=== PATIENT | female | born 1955 | race Caucasian/White ===

== ENCOUNTER 2017-03-19 15:33 | Inpatient (IN) | payer MEDICAID, OTHER ==
--- NOTE | 2017-03-19 16:29 | C.PDOC ---
History Of Present Illness 61 y/o female presents to ED sent by clinic for evaluation on abnormal labs. Patient was called to come in to ED for low hemoglobin of 6. Patient reports fatigue, sob with exertion, palpitations with exertion and lightheadedness but thought symptoms were related to leg ulcers. Patient was seen yesterday for chronic leg ulcers at [facility]. She had been follow by the wound care center in [place] in the past. She denies rectal bleeding, fever, chills but reports night time urinary incontinence. No other complaints at this time. Time Seen by Provider: 03/19/17 16:03 Chief Complaint (Nursing): Abnormal Labs History Per: Patient History/Exam Limitations: no limitations Onset/Duration Of Symptoms: Days Current Symptoms Are (Timing): Still Present Past Medical History Reviewed: Historical Data, Nursing Documentation, Vital Signs Vital Signs: Last Vital Signs Temp 98.5 F 03/19/17 15:44 Pulse 116 H 03/19/17 15:44 Resp 18 03/19/17 15:44 BP 134/77 03/19/17 15:44 Pulse Ox 99 03/19/17 16:34 - Medical History PMH: Peripheral Edema Family History: States: Unknown Family Hx - Social History Hx Alcohol Use: No Hx Substance Use: No - Immunization History Hx Tetanus Toxoid Vaccination: No Hx Influenza Vaccination: No Hx Pneumococcal Vaccination: No Review Of Systems Except As Marked, All Systems Reviewed And Found Negative. Constitutional: Negative for: Fever, Chills Respiratory: Positive for: SOB with Excertion Gastrointestinal: Negative for: Nausea, Vomiting, Diarrhea Genitourinary: Positive for: Incontinence. Negative for: Dysuria Neurological: Positive for: Dizziness. Negative for: Headache Physical Exam - Physical Exam Appears: No Acute Distress Skin: Pale Head: Atraumatic, Normacephalic Eye(s): bilateral: Normal Inspection Oral Mucosa: Moist Cardiovascular: Rhythm Irregular (Tachycardic), No Murmur Respiratory: Normal Breath Sounds, No Rales, No Rhonchi, No Wheezing Gastrointestinal/Abdominal: Soft, No Tenderness, No Guarding, No Rebound, Other (Soft tissues on RLQ) Extremity: No Tenderness, Capillary Refill (<2 seconds), No Deformity, Other ( Soft tissue mass on left proximal anterior thigh, noted for 2 months, ) Neurological/Psych: Oriented x3, Normal Motor, Normal Sensation, Normal Reflexes ED Course And Treatment - Laboratory Results Result Diagrams: 03/19/17 17:09 03/19/17 17:09 Lab Interpretation: Abnormal (HGB 5.9 with low indices.) O2 Sat by Pulse Oximetry: 99 (RA) Pulse Ox Interpretation: Normal - Physician Consult Information Time Consulting Physician Contacted: 18:34 Physician Contacted: Ameena Jefferson Outcome Of Conversation: Patient to be admitted for severe anemia and treatment of chronic leg ulcers. Disposition - Disposition Disposition: HOSPITALIZED Disposition Time: 18:35 Condition: FAIR - POA Present On Arrival: None - Clinical Impression Clinical Impression: Severe anemia, Chronic ulcer of leg - Scribe Statement The provider has reviewed the documentation as recorded by the Rosanne Myers All medical record entries made by the Rosanne were at my direction and personally dictated by me. I have reviewed the chart and agree that the record accurately reflects my personal performance of the history, physical exam, medical decision making, and the department course for this patient. I have also personally directed, reviewed, and agree with the discharge instructions and disposition.
[2017-03-19 17:14] LABS: BASO # 0.1 K/uL (0.0-0.2); BASO % 1.3 % (0.0-2.0); EOS # 0.1 K/uL (0.0-0.7); HEMATOCRIT 20.2 % (34.0-47.0); LYMPH # 0.9 K/uL (1.0-4.3); MEAN CELL VOLUME 60.9 fL (81.0-99.0); MEAN CORPUSCULAR HEMOGLOBIN 17.8 pg (27.0-31.0); MEAN CORPUSCULAR HGB CONC 29.2 g/dL (33.0-37.0); MEAN PLATELET VOLUME 6.4 fL (7.2-11.7); MONO # 0.6 K/uL (0.0-0.8); MONO % 7.3 % (0.0-10.0); RED CELL DISTRIBUTION WIDTH 17.4 % (11.5-14.5); WHITE BLOOD COUNT 8.9 K/uL (4.8-10.8)
[2017-03-19 17:22] LABS: CHLORIDE 97 mmol/L (98-107); POTASSIUM 3.8 mmol/L (3.6-5.2); SODIUM 133 mmol/L (132-148)
[2017-03-19 17:23] LABS: INR 1.2
[2017-03-19 17:24] LABS: BILIRUBIN,TOTAL 0.3 mg/dL (0.2-1.3); GFR AFRICAN-AMERICAN > 60
[2017-03-19 17:25] LABS: ALB/GLOB RATIO 0.6 (1.0-2.1); ALKALINE PHOSPHATASE 88 U/L (38-126); ALT/SGPT 20 U/L (9-52); AST/SGOT 16 U/L (14-36); BLOOD UREA NITROGEN 8 mg/dL (7-17); CARBON DIOXIDE 26 mmol/L (22-30); GLUCOSE,RANDOM 94 mg/dL (65-105); TOTAL PROTEIN 8.2 g/dL (6.3-8.3)
[2017-03-19 17:26] LABS: CALCIUM 8.1 mg/dl (8.6-10.4)
[2017-03-19 18:36] LABS: RBC URINE 2 /hpf (0-3); TRANSITIONAL EPITHIAL < 1 /hpf (0-3); URINE BACTERIA RARE (<OCC); URINE BILIRUBIN NEGATIVE (NEGATIVE); URINE BLOOD NEGATIVE (NEGATIVE); URINE COLOR Yellow (YELLOW); URINE GLUCOSE (UA) NORMAL (Normal); URINE KETONE NEGATIVE (NEGATIVE); URINE LEUKOCYTE ESTERASE 1+ Leu/uL (Negative); URINE PROTEIN NEGATIVE (NEGATIVE); URINE UROBILINOGEN NORMAL mg/dL (0.2-1.0); WBC URINE 9 /hpf (0-5)
[2017-03-19] MEDS ORDERED: Piperacillin/Tazobact 3.375 gm 100 ML IVPB SCH (22:00)
[2017-03-20] MEDS ORDERED: Piperacillin/Tazobact 3.375 gm 100 ML IVPB ONE (00:08)
[2017-03-20] MEDS: Piperacillin/Tazobact 3.375 GM in Sodium Chloride 0.9% 100 ML IVPB SCH ×3 (06:29→22:08)
[2017-03-20 12:07] LABS: BASO # 0.1 K/uL (0.0-0.2); EOS # 0.1 K/uL (0.0-0.7); LYMPH # 0.9 K/uL (1.0-4.3); RED CELL DISTRIBUTION WIDTH 17.6 % (11.5-14.5)
[2017-03-20 12:16] LABS: BASO % 0.6 % (0.0-2.0); EOS % 0.6 % (0.0-4.0); HEMATOCRIT 19.7 % (34.0-47.0); LYMPH % 9.9 % (20.0-40.0); MEAN CELL VOLUME 60.9 fL (81.0-99.0); MEAN CORPUSCULAR HEMOGLOBIN 18.2 pg (27.0-31.0); MEAN CORPUSCULAR HGB CONC 29.8 g/dL (33.0-37.0); MEAN PLATELET VOLUME 6.8 fL (7.2-11.7); MONO # 0.7 K/uL (0.0-0.8); MONO % 7.7 % (0.0-10.0); PLATELET COUNT 461 K/uL (130-400); WHITE BLOOD COUNT 8.8 K/uL (4.8-10.8)
[2017-03-20 12:41] LABS: BASOPHIL 1 % (0-2); NEUTROPHIL 85 % (50-75); TOTAL CELLS COUNTED 100
[2017-03-20] MEDS ORDERED: Ciprofloxacin 400mg/200ml D5W 400 MG/200 ML BAG IVPB SCH (19:00)
--- NOTE | 2017-03-20 19:09 | CP.PCM.HP ---
History of Present Illness - History of Present Illness History of Present Illness: fatige weeke sever aneamia infected ulcer ankle Present on Admission - Present on Admission Any Indicators Present on Admission: No Review of Systems - Review of Systems Systems not reviewed;Unavailable: Acuity of Condition - Constitutional Constitutional: Anorexia, Weight Loss, Weakness - EENT Eyes: As Per HPI Ears: As Per HPI Nose/Mouth/Throat: As Per HPI - Breasts Breasts: As Per HPI - Cardiovascular Cardiovascular: As Per HPI - Respiratory Respiratory: As Per HPI - Gastrointestinal Gastrointestinal: As Per HPI - Genitourinary Genitourinary: As Per HPI - Reproductive: Female Reproductive:Female: As Per HPI - Menstruation Menstruation: As Per HPI - Musculoskeletal Musculoskeletal: As Per HPI - Integumentary Integumentary: As Per HPI - Neurological Neurological: As Per HPI - Psychiatric Psychiatric: As Per HPI - Endocrine Endocrine: As Per HPI - Hematologic/Lymphatic Hematologic: As Per HPI Past Patient History - Past Medical History & Family History Past Medical History?: Yes - Past Social History Smoking Status: Never Smoked - CARDIAC Hx Cardiac Disorders: Yes Hx Peripheral Edema: Yes - PULMONARY Hx Respiratory Disorders: No - NEUROLOGICAL Hx Neurological Disorder: No - HEENT Hx HEENT Problems: No - RENAL Hx Chronic Kidney Disease: No - HEMATOLOGICAL/ONCOLOGICAL Hx AIDS: No - INTEGUMENTARY Hx Dermatological Problems: No - MUSCULOSKELETAL/RHEUMATOLOGICAL Hx Musculoskeletal Disorders: No Hx Falls: No Other/Comment: urinary frequency - GASTROINTESTINAL Hx Gastrointestinal Disorders: No - GENITOURINARY/GYNECOLOGICAL Hx Genitourinary Disorders: No - PSYCHIATRIC Hx Psychophysiologic Disorder: No Hx Substance Use: No - SURGICAL HISTORY Hx Surgeries: No - ANESTHESIA Hx Anesthesia: No Meds Allergies/Adverse Reactions: Allergies Allergy/AdvReac Type Severity Reaction Status Date / Time clarithromycin [From Biaxin] Allergy ITCHING Verified 03/19/17 15:47 Physical Exam - Constitutional Appears: Non-toxic, Older Than Stated Age - Head Exam Head Exam: NORMAL INSPECTION - Eye Exam Eye Exam: Normal appearance Additional comments: pale conjunctiva - ENT Exam ENT Exam: Mucous Membranes Moist - Neck Exam Neck exam: Positive for: Full Rom - Respiratory Exam Respiratory Exam: Clear to Auscultation Bilateral - Cardiovascular Exam Cardiovascular Exam: REGULAR RHYTHM - GI/Abdominal Exam GI & Abdominal Exam: Normal Bowel Sounds - Rectal Exam Rectal Exam: NORMAL INSPECTION - Extremities Exam Additional comments: ulcer infected ankle - Back Exam Back exam: NORMAL INSPECTION - Neurological Exam Neurological exam: Normal Gait - Psychiatric Exam Psychiatric exam: Normal Affect - Skin Skin Exam: Pallor Results - Vital Signs Recent Vital Signs: Last Vital Signs Temp 99 F 03/20/17 17:33 Pulse 92 H 03/20/17 17:33 Resp 20 03/20/17 17:33 BP 146/77 03/20/17 17:33 Pulse Ox 96 03/20/17 16:00 - Labs Result Diagrams: 03/20/17 11:55 03/19/17 17:09 Labs: Laboratory Results - last 24 hr 03/20/17 11:55 WBC 8.8 RBC 3.24 L Hgb 5.9 L* Hct 19.7 L MCV 60.9 L MCH 18.2 L MCHC 29.8 L RDW 17.6 H Plt Count 461 H MPV 6.8 L Neut % (Auto) 81.2 H Lymph % (Auto) 9.9 L [place] % (Auto) 7.7 Eos % (Auto) 0.6 Baso % (Auto) 0.6 Neut # 7.1 H Lymph # 0.9 L [place] # 0.7 Eos # 0.1 Baso # 0.1 Neutrophils % (Manual) 85 H Band Neutrophils % 1 Lymphocytes % (Manual) 8 L Monocytes % (Manual) 5 Basophils % (Manual) 1 Platelet Estimate Normal Hypochromasia (manual) Moderate Poikilocytosis (manual Slight Anisocytosis (manual) Slight Ovalocytes Slight Assessment & Plan - Assessment and Plan (Free Text) Assessment: severe aneamia hyocalceamia malnurishment Plan: as per orders - Date & Time Date: 03/20/17 Time: 19:11
[2017-03-20] MEDS: Ciprofloxacin 400mg/200ml D5W 400 MG/200 ML BAG IVPB SCH (20:20)
[2017-03-21] MEDS: Piperacillin/Tazobact 3.375 GM in Sodium Chloride 0.9% 100 ML IVPB SCH ×3 (05:20→21:00)
[2017-03-21 08:03] LABS: BASO # 0.1 K/uL (0.0-0.2); BASO % 1.2 % (0.0-2.0); EOS # 0.2 K/uL (0.0-0.7); EOS % 2.5 % (0.0-4.0); HEMATOCRIT 22.6 % (34.0-47.0); LYMPH # 1.2 K/uL (1.0-4.3); LYMPH % 17.2 % (20.0-40.0); MEAN CORPUSCULAR HEMOGLOBIN 18.8 pg (27.0-31.0); MEAN CORPUSCULAR HGB CONC 29.4 g/dL (33.0-37.0); MEAN PLATELET VOLUME 6.9 fL (7.2-11.7); MONO # 0.5 K/uL (0.0-0.8); RED CELL DISTRIBUTION WIDTH 19.4 % (11.5-14.5); WHITE BLOOD COUNT 6.9 K/uL (4.8-10.8)
[2017-03-21 08:07] LABS: MEAN CELL VOLUME 63.7 fL (81.0-99.0)
[2017-03-21] MEDS ORDERED: Iohexol 240 (50 ml) PO ONE (08:15)
[2017-03-21] MEDS: Ciprofloxacin 400mg/200ml D5W 400 MG/200 ML BAG IVPB SCH ×2 (08:15→22:10)
[2017-03-21 08:41] LABS: CARCINOEMBRYONIC ANTIGEN 1.7 ng/mL (0-3.0)
[2017-03-21] MEDS: Calcium-Vit D 500 mg-200 Units Tab UD PO SCH (10:00)
--- NOTE | 2017-03-21 10:47 | CP.PCM.PN ---
Subjective - Date & Time of Evaluation Date of Evaluation: 03/21/17 Time of Evaluation: 10:44 - Subjective Subjective: feels beter sofi stronger seen by dr marco cutler cleaned and dressedsitt need iv antbiotic geting transfusionnow Objective - Vital Signs/Intake and Output Vital Signs (last 24 hours): Temp Pulse Resp BP Pulse Ox 98.4 F 90 20 160/80 H 98 03/21/17 09:38 03/21/17 07:48 03/21/17 07:48 03/21/17 07:48 03/21/17 07:48 Intake and Output: 03/21/17 03/21/17 06:59 18:59 Intake Total 800 0 Balance 800 0 - Medications Medications: Current Medications Acetaminophen (Tylenol 325mg Tab) 650 mg PO Q6 PRN PRN Reason: Pain, Mild (1-3) Last Admin: 03/21/17 09:38 Dose: 650 mg Calcium/Vitamin D (Oyster Shell Calcium/Vitamin D 500 Mg-200 Iu) 1 tab PO DAILY [facility] Piperacillin Sod/Tazobactam (Sod 3.375 gm/ Sodium Chloride) 100 mls @ 200 mls/ hr IVPB Q8 [facility] Last Admin: 03/21/17 05:20 Dose: 200 mls/hr Ciprofloxacin (Cipro 400mg/200ml Dsw) 400 mg in 200 mls @ 133 mls/hr IVPB Q12H [facility] Last Admin: 03/20/17 20:20 Dose: 133 mls/hr Pneumococcal Polyvalent Vaccine (Pneumovax 23 Vaccine) 0.5 ml IM .ONCE ONE Stop: 03/22/17 10:01 Tramadol HCl (Ultram) 25 mg PO TID PRN PRN Reason: Pain, moderate (4-7) - Labs Labs: 03/21/17 07:34 PT 13.9 SECONDS (9.7-12.2) H 03/19/17 17:09 INR 1.2 03/19/17 17:09 APTT 30 SECONDS (21-34) 03/19/17 17:09 - Constitutional Appears: Non-toxic - Head Exam Head Exam: NORMAL INSPECTION - Eye Exam Eye Exam: EOMI, PERRL Pupil Exam: NORMAL ACCOMODATION - ENT Exam ENT Exam: Mucous Membranes Moist - Neck Exam Neck Exam: Full ROM - Respiratory Exam Respiratory Exam: Clear to Ausculation Bilateral - Cardiovascular Exam Cardiovascular Exam: REGULAR RHYTHM - GI/Abdominal Exam GI & Abdominal Exam: Normal Bowel Sounds - Extremities Exam Extremities Exam: Normal Inspection Additional comments: dressing intact - Back Exam Back Exam: NORMAL INSPECTION - Neurological Exam Neurological Exam: Alert, Normal Gait, Oriented x3 - Additional Findings Additional findings: pt refuing endoscopy Assessment and Plan - Assessment and Plan (Free Text) Assessment: aneamia malnutrion infected ulcer ankle
--- NOTE | 2017-03-21 16:24 | CT ---
PROCEDURE: CT Abdomen and Pelvis without intravenous contrast HISTORY: anemia COMPARISON: None. TECHNIQUE: Without contrast.. Contrast Dose: 0 Radiation dose: Total exam DLP = 304.90 mGy-cm. This CT exam was performed using one or more of the following dose reduction techniques: Automated exposure control, adjustment of the mA and/or kV according to patient size, and/or use of iterative reconstruction technique. FINDINGS: LOWER THORAX: Mild cardiomegaly. LIVER: Normal size and contour. Multiple small low-density lesions, nonspecific, in both right and left hepatic lobe. Possible cysts. No biliary dilatation. Smooth contour. GALLBLADDER AND BILE DUCTS: Unremarkable. PANCREAS: Unremarkable. No gross lesion or ductal dilatation. SPLEEN: Unremarkable. ADRENALS: Unremarkable. No mass. KIDNEYS AND URETERS: Unremarkable. No hydronephrosis. No solid mass. VASCULATURE: Unremarkable. No aortic aneurysm. BOWEL: Sigmoid diverticulosis. No evidence of diverticulitis. No bowel obstruction. APPENDIX: Unremarkable. Normal appendix. PERITONEUM: Unremarkable. No free fluid. No free air. LYMPH NODES: Unremarkable. No enlarged lymph nodes. BLADDER: Unremarkable. REPRODUCTIVE: Nodular uterine calcification likely represents a calcified uterine fibroid. BONES: No acute fracture. OTHER FINDINGS: None. IMPRESSION: No acute abnormality. Sigmoid diverticulosis. No evidence of diverticulitis. . Nonspecific small low-density hepatic lesions, largest 12 mm. Possible cysts. Consider correlation with ultrasound examination. Mild cardiomegaly.
[2017-03-22] MEDS: Tramadol 25 mg PO PRN (00:35)
[2017-03-22] MEDS: Piperacillin/Tazobact 3.375 GM in Sodium Chloride 0.9% 100 ML IVPB SCH ×3 (05:31→22:03)
[2017-03-22 07:44] LABS: BASO # 0.1 K/uL (0.0-0.2); BASO % 0.9 % (0.0-2.0); EOS # 0.3 K/uL (0.0-0.7); EOS % 4.1 % (0.0-4.0); HEMATOCRIT 28.5 % (34.0-47.0); LYMPH # 1.2 K/uL (1.0-4.3); LYMPH % 18.4 % (20.0-40.0); MEAN CORPUSCULAR HEMOGLOBIN 20.6 pg (27.0-31.0); MEAN CORPUSCULAR HGB CONC 30.7 g/dL (33.0-37.0); MEAN PLATELET VOLUME 6.9 fL (7.2-11.7); MONO # 0.5 K/uL (0.0-0.8); MONO % 7.1 % (0.0-10.0); NRBC % 0.1 % (0.0-2.0); RED CELL DISTRIBUTION WIDTH 23.4 % (11.5-14.5); WHITE BLOOD COUNT 6.5 K/uL (4.8-10.8)
[2017-03-22 08:05] LABS: CHLORIDE 97 mmol/L (98-107)
[2017-03-22 08:06] LABS: SODIUM 136 mmol/L (132-148)
[2017-03-22 08:08] LABS: GFR AFRICAN-AMERICAN > 60
[2017-03-22 08:09] LABS: BLOOD UREA NITROGEN 8 mg/dL (7-17); CALCIUM 8.3 mg/dl (8.6-10.4); CARBON DIOXIDE 30 mmol/L (22-30); GLUCOSE,RANDOM 89 mg/dL (65-105)
[2017-03-22] MEDS: Ciprofloxacin 400mg/200ml D5W 400 MG/200 ML BAG IVPB SCH (08:49)
[2017-03-22] MEDS: Calcium-Vit D 500 mg-200 Units Tab UD PO SCH (09:05)
[2017-03-22] MEDS ORDERED: Pneumococcal 23-Valent Vaccine IM ONE (10:00)
[2017-03-23 00:01] VITALS: RESP 20
[2017-03-23] MEDS: Piperacillin/Tazobact 3.375 GM in Sodium Chloride 0.9% 100 ML IVPB SCH ×3 (06:05→22:08)
[2017-03-23 08:26] LABS: HEMATOCRIT 29.8 % (34.0-47.0); MEAN CORPUSCULAR HEMOGLOBIN 20.7 pg (27.0-31.0); MEAN CORPUSCULAR HGB CONC 30.9 g/dL (33.0-37.0); MEAN PLATELET VOLUME 6.6 fL (7.2-11.7); RED CELL DISTRIBUTION WIDTH 24.2 % (11.5-14.5); WHITE BLOOD COUNT 5.4 K/uL (4.8-10.8)
[2017-03-23] MEDS: Ciprofloxacin 400mg/200ml D5W 400 MG/200 ML BAG IVPB SCH ×2 (08:31→20:00)
[2017-03-23 08:51] LABS: CHLORIDE 103 mmol/L (98-107); SODIUM 140 mmol/L (132-148)
[2017-03-23 08:52] LABS: POTASSIUM 4.1 mmol/L (3.6-5.2)
[2017-03-23 08:54] LABS: CARBON DIOXIDE 29 mmol/L (22-30); GFR AFRICAN-AMERICAN > 60
[2017-03-23 08:55] LABS: BLOOD UREA NITROGEN 12 mg/dL (7-17); CALCIUM 8.7 mg/dl (8.6-10.4); GLUCOSE,RANDOM 84 mg/dL (65-105)
[2017-03-23] MEDS: Tramadol 25 mg PO PRN ×2 (10:03→22:10)
[2017-03-23] MEDS: Calcium-Vit D 500 mg-200 Units Tab UD PO SCH (10:04)
--- NOTE | 2017-03-23 11:25 | CP.PCM.PN ---
Subjective - Date & Time of Evaluation Date of Evaluation: 03/23/17 Time of Evaluation: 11:22 - Subjective Subjective: still has diarhea one this morning pain leg frequancy urination Objective - Vital Signs/Intake and Output Vital Signs (last 24 hours): Temp Pulse Resp BP Pulse Ox 98.9 F 96 H 20 117/69 97 03/23/17 08:00 03/23/17 08:00 03/23/17 08:00 03/23/17 08:00 03/23/17 08:00 Intake and Output: 03/23/17 03/23/17 06:59 18:59 Intake Total 950 Output Total 500 Balance 450 - Medications Medications: Current Medications Acetaminophen (Tylenol 325mg Tab) 650 mg PO Q6 PRN PRN Reason: Pain, Mild (1-3) Last Admin: 03/22/17 05:32 Dose: 650 mg Calcium/Vitamin D (Oyster Shell Calcium/Vitamin D 500 Mg-200 Iu) 1 tab PO DAILY [facility] Last Admin: 03/23/17 10:04 Dose: 1 tab Piperacillin Sod/Tazobactam (Sod 3.375 gm/ Sodium Chloride) 100 mls @ 200 mls/ hr IVPB Q8 [facility]IE Last Admin: 03/23/17 06:05 Dose: 200 mls/hr Ciprofloxacin (Cipro 400mg/200ml Dsw) 400 mg in 200 mls @ 133 mls/hr IVPB Q12H [facility] Last Admin: 03/23/17 08:31 Dose: 133 mls/hr Tramadol HCl (Ultram) 25 mg PO TID PRN PRN Reason: Pain, moderate (4-7) Last Admin: 03/23/17 10:03 Dose: 25 mg - Labs Labs: 03/23/17 08:16 03/23/17 08:16 PT 13.9 SECONDS (9.7-12.2) H 03/19/17 17:09 INR 1.2 03/19/17 17:09 APTT 30 SECONDS (21-34) 03/19/17 17:09 - Constitutional Appears: Non-toxic - Head Exam Head Exam: NORMAL INSPECTION - Eye Exam Eye Exam: Normal appearance Pupil Exam: NORMAL ACCOMODATION - ENT Exam ENT Exam: Normal Exam - Neck Exam Neck Exam: Full ROM - Respiratory Exam Respiratory Exam: Clear to Ausculation Bilateral - Cardiovascular Exam Cardiovascular Exam: REGULAR RHYTHM - GI/Abdominal Exam GI & Abdominal Exam: Normal Bowel Sounds - Extremities Exam Additional comments: ulcer infected ankle has cyndie badage on both legs - Psychiatric Exam Psychiatric exam: Normal Affect - Skin Skin Exam: Normal Color Assessment and Plan - Assessment and Plan (Free Text) Assessment: s/p severe aneamia s/p transfusion ac enteritis severe infection ulcer ankle Plan: cont antibiotics and foot care f/u blood culter seun gi shelbial she thinking about it
--- NOTE | 2017-03-23 16:12 | US ---
HISTORY: liver leasion possible cysts COMPARISON: CT abdomen and pelvis from 03/21/2017. TECHNIQUE: Grayscale imaging was performed. FINDINGS: LIVER: Measures 18.9 cm. There is normal echogenicity of the liver parenchyma. There is a focal area of increased echogenicity anterior to the ramírez hepatis. There are 2 simple cysts, the larger in the left hepatic lobe measures 1.9 cm. . No intrahepatic bile duct dilatation. GALLBLADDER: There are multiple gallstones. No wall thickening, pericholecystic fluid or positive sonographic Abreu's sign. COMMON BILE DUCT: Measures 2.6 mm. No stones. No dilatation. PANCREAS: Unremarkable as visualized. No mass. No ductal dilatation. RIGHT KIDNEY: Measures 10.6cm. Normal echogenicity. No calculus, mass, or hydronephrosis. LEFT KIDNEY: Measures 12.0cm. Normal echogenicity. No calculus, mass, or hydronephrosis. SPLEEN: Normal in size and contour. No mass. AORTA: No aneurysmal dilatation. IVC: Unremarkable. OTHER FINDINGS: None. IMPRESSION: 1. Hepatomegaly. Two simple cysts in the liver, the larger in the left hepatic lobe measures 1.9 cm. Focal area of increased echogenicity anterior to the ramírez hepatitis could represent focal fatty infiltration or hemangioma. 2. Cholelithiasis.
[2017-03-24 00:07] VITALS: O2SAT 96
[2017-03-24] MEDS: Piperacillin/Tazobact 3.375 GM in Sodium Chloride 0.9% 100 ML IVPB SCH ×2 (06:02→13:35)
[2017-03-24] MEDS: Ciprofloxacin 400mg/200ml D5W 400 MG/200 ML BAG IVPB SCH (09:53)
[2017-03-24] MEDS: Calcium-Vit D 500 mg-200 Units Tab UD PO SCH (10:07)
[2017-03-24] MEDS: Tramadol 25 mg PO PRN (10:22)
--- NOTE | 2017-03-24 10:48 | VASCLAB ---
PROCEDURE: Lower Extremity Venous Duplex Exam. HISTORY: cellulitis, r/o DVT PRIORS: None. TECHNIQUE: Bilateral common femoral, femoral, popliteal and posterior tibial, peroneal and great saphenous veins were evaluated. Flow was assessed with color Doppler, compressibility, assessment of phasic flow and augmentation response. Report prepared by MATTHEW Gomez FINDINGS: RIGHT: 1. Common Femoral Vein: 1.1. Compressibility - Fully compressible: Thrombus - None : Flow - Phasic: Augmentation -Normal: Reflux - None. 2. Femoral Vein: 2.1. Compressibility - Fully compressible: Thrombus - None : Flow - Phasic: Augmentation -Normal: Reflux - None. 3. Popliteal Vein: 3.1. Compressibility - Fully compressible: Thrombus - None : Flow - Phasic: Augmentation -Normal: Reflux - None. LEFT: 1. Common Femoral Vein: 1.1. Compressibility - Fully compressible: Thrombus - None: Flow - Phasic: Augmentation -Normal: Reflux - None. 2. Femoral Vein: 2.1. Compressibility - Fully compressible: Thrombus - None: Flow - Phasic: Augmentation -Normal: Reflux - None. 3. Popliteal Vein: 3.1. Compressibility - Fully compressible: Thrombus - None : Flow - Phasic: Augmentation -Normal: Reflux - None.. OTHER FINDINGS: Right: None significant. Left: None significant. IMPRESSION: 1. No evidence of deep vein thrombosis in bilateral common femoral, femoral and popliteal veins. 2. Deep veins below the knee level were not examined, due to bandaged calves.
--- NOTE | 2017-03-24 16:08 | CP.PCM.PN ---
Subjective - Date & Time of Evaluation Date of Evaluation: 03/24/17 Time of Evaluation: 11:00 - Subjective Subjective: Awake, alert, NAD. Objective - Vital Signs/Intake and Output Vital Signs (last 24 hours): Temp Pulse Resp BP Pulse Ox 98.3 F 77 20 136/72 96 03/24/17 07:37 03/24/17 07:37 03/24/17 07:37 03/24/17 07:37 03/24/17 07:37 Intake and Output: 03/24/17 03/24/17 06:59 18:59 Intake Total 900 350 Balance 900 350 - Medications Medications: Current Medications Acetaminophen (Tylenol 325mg Tab) 650 mg PO Q6 PRN PRN Reason: Pain, Mild (1-3) Last Admin: 03/22/17 05:32 Dose: 650 mg Calcium/Vitamin D (Oyster Shell Calcium/Vitamin D 500 Mg-200 Iu) 1 tab PO DAILY [facility] Last Admin: 03/24/17 10:07 Dose: 1 tab Piperacillin Sod/Tazobactam (Sod 3.375 gm/ Sodium Chloride) 100 mls @ 200 mls/ hr IVPB Q8 [facility] Last Admin: 03/24/17 13:35 Dose: 200 mls/hr Ciprofloxacin (Cipro 400mg/200ml Dsw) 400 mg in 200 mls @ 133 mls/hr IVPB Q12H [facility] Last Admin: 03/24/17 09:53 Dose: 133 mls/hr Tramadol HCl (Ultram) 25 mg PO TID PRN PRN Reason: Pain, moderate (4-7) Last Admin: 03/24/17 10:22 Dose: 25 mg - Labs Labs: 03/23/17 08:16 03/23/17 08:16 PT 13.9 SECONDS (9.7-12.2) H 03/19/17 17:09 INR 1.2 03/19/17 17:09 APTT 30 SECONDS (21-34) 03/19/17 17:09 Assessment and Plan - Assessment and Plan (Free Text) Assessment: Patient is seen and examined, alert, awake denies any sob or chest pains. On both legs unna boots applied by Dr Lindsay. [facility], will discharge home today on cipro po bidx 7 days. Advised to follow up in DR Hoang office to [facility] on Friday as advised.
[2017-03-24 16:19] VITALS: BP 145/83; PULSE 93; TEMP 98.4
--- NOTE | 2017-03-24 18:10 | CP.PCM.DIS ---
Provider - Provider Date of Admission: 03/19/17 18:36 Attending physician: Ameena Jefferson MD Primary care physician: pt came in for severe aneamia received transfusion refused gi work up stool ocult negative had infected ulcer anle was seen by pod dr andrade was treated with iv antibiotics improved d/c home today f/u by dr lara and me in office cont med asssevere aneamia infeced emmanuel ulcer Time Spent in preparation of Discharge (in minutes): 30 Hospital Course - Lab Results Lab Results: Micro Results 03/19/17 Unknown Leg - Left Gram Stain - Final 03/19/17 Unknown Leg - Left Wound Culture - Final Providencia Stuartii 03/19/17 Unknown Leg - Right Gram Stain - Final 03/19/17 Unknown Leg - Right Wound Culture - Final Providencia Stuartii Staphylococcus Aureus Most Recent Lab Values WBC 5.4 K/uL (4.8-10.8) 03/23/17 08:16 RBC 4.45 Mil/uL (3.80-5.20) 03/23/17 08:16 Hgb 9.2 g/dL (11.0-16.0) L 03/23/17 08:16 Hct 29.8 % (34.0-47.0) L 03/23/17 08:16 MCV 67.0 fL (81.0-99.0) L 03/23/17 08:16 MCH 20.7 pg (27.0-31.0) L 03/23/17 08:16 MCHC 30.9 g/dL (33.0-37.0) L 03/23/17 08:16 RDW 24.2 % (11.5-14.5) H 03/23/17 08:16 Plt Count 468 K/uL (130-400) H 03/23/17 08:16 MPV 6.6 fL (7.2-11.7) L 03/23/17 08:16 Neut % (Auto) 69.5 % (50.0-75.0) 03/22/17 07:26 Lymph % (Auto) 18.4 % (20.0-40.0) L 03/22/17 07:26 [place] % (Auto) 7.1 % (0.0-10.0) 03/22/17 07:26 Eos % (Auto) 4.1 % (0.0-4.0) H 03/22/17 07:26 Baso % (Auto) 0.9 % (0.0-2.0) 03/22/17 07:26 Neut # 4.5 K/uL (1.8-7.0) 03/22/17 07:26 Lymph # 1.2 K/uL (1.0-4.3) 03/22/17 07:26 [place] # 0.5 K/uL (0.0-0.8) 03/22/17 07:26 Eos # 0.3 K/uL (0.0-0.7) 03/22/17 07:26 Baso # 0.1 K/uL (0.0-0.2) 03/22/17 07:26 Neutrophils % (Manual) 85 % (50-75) H 03/20/17 11:55 Band Neutrophils % 1 % (0-2) 03/20/17 11:55 Lymphocytes % (Manual) 8 % (20-40) L 03/20/17 11:55 Monocytes % (Manual) 5 % (0-10) 03/20/17 11:55 Basophils % (Manual) 1 % (0-2) 03/20/17 11:55 Differential Comment 03/19/17 17:09 Platelet Estimate Normal (NORMAL) 03/20/17 11:55 Hypochromasia (manual) Moderate 03/20/17 11:55 Poikilocytosis (manual Slight 03/20/17 11:55 Anisocytosis (manual) Slight 03/20/17 11:55 Ovalocytes Slight 03/20/17 11:55 PT 13.9 SECONDS (9.7-12.2) H 03/19/17 17:09 INR 1.2 03/19/17 17:09 APTT 30 SECONDS (21-34) 03/19/17 17:09 Sodium 140 mmol/L (132-148) 03/23/17 08:16 Potassium 4.1 mmol/L (3.6-5.2) 03/23/17 08:16 Chloride 103 mmol/L (98-107) 03/23/17 08:16 Carbon Dioxide 29 mmol/L (22-30) 03/23/17 08:16 Anion Gap 12 (10-20) 03/23/17 08:16 BUN 12 mg/dL (7-17) 03/23/17 08:16 Creatinine 0.7 MG/DL (0.7-1.2) 03/23/17 08:16 Est GFR ( Amer) > 60 03/23/17 08:16 Est GFR (Non-Af Amer) > 60 03/23/17 08:16 Random Glucose 84 mg/dL (65-105) 03/23/17 08:16 Calcium 8.7 mg/dl (8.6-10.4) 03/23/17 08:16 Ferritin 23.9 ng/mL 03/21/17 07:34 Total Bilirubin 0.3 mg/dL (0.2-1.3) 03/19/17 17:09 AST 16 U/L (14-36) 03/19/17 17:09 ALT 20 U/L (9-52) 03/19/17 17:09 Alkaline Phosphatase 88 U/L (38-126) 03/19/17 17:09 Total Protein 8.2 g/dL (6.3-8.3) 03/19/17 17:09 Albumin 3.1 g/dL (3.5-5.0) L 03/19/17 17:09 Globulin 5.1 gm/dL (2.2-3.9) H 03/19/17 17:09 Albumin/Globulin Ratio 0.6 (1.0-2.1) L 03/19/17 17:09 Carcinoembryonic Ag 1.7 ng/mL (0-3.0) 03/21/17 07:34 CA 125 Antigen 13.5 U/mL (0-35) 03/21/17 07:34 Urine Color Yellow (YELLOW) 03/19/17 18:12 Urine Clarity Clear (Clear) 03/19/17 18:12 Urine pH 6.0 (5.0-8.0) 03/19/17 18:12 Ur Specific [place] 1.004 (1.003-1.030) 03/19/17 18:12 Urine Protein Negative mg/dL (NEGATIVE) 03/19/17 18:12 Urine Glucose (UA) Normal mg/dL (Normal) 03/19/17 18:12 Urine Ketones Negative mg/dL (NEGATIVE) 03/19/17 18:12 Urine Blood Negative (NEGATIVE) 03/19/17 18:12 Urine Nitrate Negative (NEGATIVE) 03/19/17 18:12 Urine Bilirubin Negative (NEGATIVE) 03/19/17 18:12 Urine Urobilinogen Normal mg/dL (0.2-1.0) 03/19/17 18:12 Ur Leukocyte Esterase 1+ Anibal/uL (Negative) H 03/19/17 18:12 Urine WBC (Auto) 9 /hpf (0-5) H 03/19/17 18:12 Urine RBC (Auto) 2 /hpf (0-3) 03/19/17 18:12 Ur Squamous Epith Cells 1 /hpf (0-5) 03/19/17 18:12 Ur Transition Epith Cell < 1 /hpf (0-3) 03/19/17 18:12 Urine Bacteria Rare (<OCC) 03/19/17 18:12 Stool Occult Blood Negative (NEGATIVE) 03/21/17 07:22 Stool Leukocytes, Qual Negative (NEGATIVE) 03/22/17 12:23 C. difficile Ag & Toxin Negative (NEGATIVE) 03/22/17 12:24 Blood Type O POSITIVE 03/21/17 07:34 Antibody Screen Negative 03/21/17 07:34 Discharge Exam - Head Exam Head Exam: NORMAL INSPECTION Discharge Plan - Discharge Medications Prescriptions: Ciprofloxacin HCl [Cipro] 500 mg PO BID #14 tablet traMADol [Ultram] 25 mg PO TID PRN #30 tab PRN Reason: Pain, Moderate (4-7) - Follow Up Plan Condition: FAIR Disposition: HOME/ ROUTINE Instructions: Ciprofloxacin (By mouth), Acute Wound Care (DC), Anemia (DC), Venous Insufficiency (DC) Referrals: Adolph Sy DPM [Doctor Pod[facility]] - Ameena Jefferson MD [Staff Provider] -
== END 2017-03-24 18:45 | disposition home or self-care (01) | DRG 395 ==
LOC: C.ER 15:33 → C.9E 18:36 → C.3T 22:51
PROVIDERS: ADMIT Internal Medicine; ATTEND Internal Medicine
PROC: 30233N1 Transfusion of Nonautologous Red Blood Cells into Peripheral Vein, Percutaneous Approach (ICD-10-PCS; principal; 2017-03-22)
DX: D64.9 Anemia, unspecified (principal); E46 Unspecified protein-calorie malnutrition; L97.319 Non-pressure chronic ulcer of right ankle with unspecified severity; E83.51 Hypocalcemia; L97.329 Non-pressure chronic ulcer of left ankle with unspecified severity; K52.9 Noninfective gastroenteritis and colitis, unspecified; R63.0 Anorexia; R63.4 Abnormal weight loss

== ENCOUNTER 2018-10-27 19:51 | Emergency (ER) | payer OTHER ==
[2018-10-27 19:59] VITALS: O2SAT 100
[2018-10-27] MEDS ORDERED: Tdap Vaccine 0.5 ml Vial (10-64 yrs) IM ONE ×2 (20:32→20:43)
--- NOTE | 2018-10-27 20:58 | C.PDOC ---
History Of Present Illness 63 y/o female presents to the ED for evaluation s/p trip and fall after catching foot on a grate. denies any chest pain, dizziness prior to fall. Patient states she tripped and tried to break her fall, but landed on her right knee and hit her head. Denies any LOC. Otherwise patient denies any neck pain, headache, abdominal pain, nausea, vomiting, extremity weakness, numbness, paresthesias, or other injury. Patient states she takes daily aspirin. Time Seen by Provider: 10/27/18 20:18 Chief Complaint (Nursing): Abnormal Skin Integrity History Per: Patient History/Exam Limitations: no limitations Onset/Duration Of Symptoms: Mins Current Symptoms Are (Timing): Still Present Past Medical History Reviewed: Historical Data, Nursing Documentation, Vital Signs Vital Signs: Last Vital Signs Temp 97.8 F 10/27/18 19:54 Pulse 94 H 10/27/18 19:54 Resp 20 10/27/18 19:54 BP 168/78 H 10/27/18 19:54 Pulse Ox 100 10/27/18 19:54 - Medical History PMH: Anemia, HTN, Peripheral Edema Denies: Chronic Kidney Disease Family History: States: Unknown Family Hx - Social History Hx Alcohol Use: No Hx Substance Use: No - Immunization History Hx Tetanus Toxoid Vaccination: No Hx Influenza Vaccination: No Hx Pneumococcal Vaccination: No Review Of Systems Constitutional: Negative for: Fever, Weakness Eyes: Negative for: Vision Change Cardiovascular: Negative for: Chest Pain Gastrointestinal: Negative for: Nausea, Vomiting, Abdominal Pain Musculoskeletal: Positive for: Leg Pain (right knee). Negative for: Neck Pain, Back Pain Skin: Positive for: Lesions (laceration to forehead) Neurological: Positive for: Other (+ head trauma without LOC). Negative for: Weakness, Numbness, Incoordination, Change in Speech, Confusion, Headache, Dizziness Physical Exam - Physical Exam Appears: Non-toxic, No Acute Distress Skin: Warm, No Rash Head: Normacephalic, Swelling (Hematoma to left forehead near the hairline), Laceration (0.5 cm horizontal laceration over hematoma) Eye(s): bilateral: Normal Inspection (No racoon eyes), PERRL, EOMI Ear(s): Bilateral: Normal (no hemotympanum) Nose: No Septal Hematoma Neck: Normal ROM, No Midline Cervical Tenderness, No Paracervical Tenderness, No Step Off Deformity, Supple Chest: No Tenderness Cardiovascular: Rhythm Regular, No Murmur Respiratory: Normal Breath Sounds, No Rales, No Rhonchi, No Wheezing Gastrointestinal/Abdominal: Soft, No Tenderness, No Distention Back: No Vertebral Tenderness Extremity: Normal ROM (of bilateral upper extremities; painful ROM of right knee), Tenderness (to right knee), No Deformity, Swelling (Right knee appears markedly swollen with multiple abrasions, swelling appears consistent w/ effusion), Other (Chronic pitting edema to the bilateral lower legs) Pulses: Left Dorsalis Pedis: Normal, Right Dorsalis Pedis: Normal Neurological/Psych: Oriented x3, Normal Speech, Normal Cognition, Normal Motor, Normal Sensation, Other (No battles sign) ED Course And Treatment O2 Sat by Pulse Oximetry: 100 (RA) Pulse Ox Interpretation: Normal Laceration - Laceration Repair forehead Description Of Wound: Irregular Wound Cleansed With: Betadine, Sterile Saline Wound Examination: Irrigated With Saline Medical Decision Making Medical Decision Making: Plan: Patient given PO Tylenol for pain. CT Head and Right Knee and Tib/Fib X-rays ordered. Tetanus booster given in the ED. [address], neg xrays of knee. cyndie bandage applied to right knee and dermabond to forhead laceration. closed head injuryinstructins discussed with patient and son. will d/c home with pmd and ortho f/u Disposition Counseled Patient/Family Regarding: Studies Performed, Diagnosis, Need For Followup, Rx Given - Disposition Referrals: Ameena Lemon APN [Non-Staff] - Abhi García MD [Staff Provider] - Disposition: HOME/ ROUTINE Disposition Time: 22:15 Condition: GOOD Additional Instructions: Wear cyndie bandage on right knee during daytime, take off at bedtime. cold compresses to knee and forehead several times per day. Tylenol for pain, avoid excedrin for a few days. Follow up with your primary doctor and with orthopedist in a few days. Return to ER for any worse symptoms, severe headache, . vomiting, seizure, lethary, or any other concerning symptoms. 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 - Scribe Statement The provider has reviewed the documentation as recorded by the Scribe Stephanie Duggan All medical record entries made by the Tishaibildefonso were at my direction and personally dictated by me. I have reviewed the chart and agree that the record accurately reflects my personal performance of the history, physical exam, medical decision making, and the department course for this patient. I have also personally directed, reviewed, and agree with the discharge instructions and disposition.
[2018-10-27 22:14] VITALS: BP 153/76; PULSE 77; RESP 16; TEMP 98.2
--- NOTE | 2018-10-28 08:31 | CT ---
Date of service: 10/27/2018 PROCEDURE: CT HEAD WITHOUT CONTRAST. HISTORY: fell, hematoma forehead, head injury. COMPARISON: None available. TECHNIQUE: Axial computed tomography images were obtained through the head/brain without intravenous contrast. Radiation dose: Total exam DLP = 1021.39 mGy-cm. This CT exam was performed using one or more of the following dose reduction techniques: Automated exposure control, adjustment of the mA and/or kV according to patient size, and/or use of iterative reconstruction technique. FINDINGS: HEMORRHAGE: No intracranial hemorrhage. BRAIN: No mass effect or edema. Scattered focal lucencies in the subcortical and periventricular white matter suggestive for chronic microvascular ischemic change. VENTRICLES: Unremarkable. No hydrocephalus. CALVARIUM: Unremarkable. PARANASAL SINUSES: Unremarkable as visualized. No significant inflammatory changes. MASTOID AIR CELLS: Unremarkable as visualized. No inflammatory changes. OTHER FINDINGS: Soft tissue swelling/small hematoma overlying the left frontal cranium. Intracranial arterial calcifications. IMPRESSION: Soft tissue swelling/small hematoma overlying the left frontal cranium. No acute intracranial abnormality. Chronic microvascular ischemic changes. If symptoms persists, consider correlation with MRI. A preliminary report was generated at 9:53 p.m. on 10/27/[address] Bret Guevara from [employer].
--- NOTE | 2018-10-28 09:22 | RAD ---
Date of service: 10/27/2018 PROCEDURE: Right Knee Radiographs. HISTORY: fal, effusion. eval for fx COMPARISON: None. FINDINGS: BONES: No acute fracture or destructive bony lesion identified. JOINTS: Limited degenerative joint space narrowing seen in all 3 compartments compatible degenerative joint disease. No subluxation or dislocation. JOINT EFFUSION: None. OTHER FINDINGS: Soft tissue edema is seen in the prepatellar and prepatellar tendon soft tissues as well as at the medial knee deep soft tissues. IMPRESSION: Soft tissue edema as discussed above. No acute fracture or dislocation identified right knee. [id number] degenerative osteoarthritis.
--- NOTE | 2018-10-28 09:24 | RAD ---
Date of service: 10/27/2018 PROCEDURE: Radiographs of the right tibia and fibula. HISTORY: s/p fall, swelling COMPARISON: None available TECHNIQUE: Frontal and lateral views obtained. FINDINGS: BONES: No acute fracture or destructive bony lesion identified. JOINT SPACES: Unremarkable. OTHER FINDINGS: Occasional soft tissue calcifications are identified in the pretibial space likely reflecting phleboliths. IMPRESSION: Unremarkable radiographs of the right tibia and fibula.
== END 2018-10-27 22:29 | disposition home or self-care (01) ==
LOC: C.ER 19:51
DX: S01.81XA Laceration without foreign body of other part of head, initial encounter (principal); W01.0XXA Fall on same level from slipping, tripping and stumbling without subsequent striking against object, initial encounter; I10 Essential (primary) hypertension; M25.461 Effusion, right knee; Z23 Encounter for immunization